=== PATIENT | male | born 1995 | race Caucasian/White ===

== ENCOUNTER 2022-02-06 05:37 | Emergency (ER) | payer MEDICAID, SELFPAY ==
[2022-02-06] VITALS (7 sets, daily range): BP systolic 121–129; BP diastolic 82–100; PULSE 128–135; RESP 21–29; TEMP 36.5; O2SAT 86–96; BMI 19.5
--- NOTE | 2022-02-06 05:51 | USR_ITS ---
PROCEDURE INFORMATION: Exam: US Duplex Left Lower Extremity Arteries Or Arterial Bypass Grafts Exam date and time: 02/06/2022 6:45 AM Age: 26 years old Clinical indication: Left leg pain TECHNIQUE: Imaging protocol: Left Real-time duplex scan of the arteries or arterial bypass grafts of the left lower extremity with 2-D dior scale, color Doppler flow and spectral waveform analysis. Images documented and saved. COMPARISON: CT ABDOMEN/PELVIS 02/06/2022 6:29 AM FINDINGS: Left common femoral artery: PSV = 15.4 cm/s. Minimal flow. Left superficial femoral artery: PSV = 15.8 cm/s. Minimal flow. Left popliteal artery: PSV = 7.7 cm/s. Minimal flow. Left calf/foot arteries: No flow detected. US/CV arterial duplex [facility] [id number] IMPRESSION: 1. Minimal flow in the femoropopliteal segment. 2. No flow detected in the tibial segment.
--- NOTE | 2022-02-06 05:57 | ECG_ITS ---
[facility] Test Date: 2022-02-06 Pat Name: Mark Nieves Department: Room: Gender: Male Telecommunications Line Mechanic: : 1995 Requested By: Frankie Barry Order Number: [id number] Renetta MD: Jessica Schroeder M.D. Measurements Intervals [place] Rate: 125 P: 74 [place]: 152 QRS: -76 QRSD: 96 T: 92 QT: 312 QTc: 450 Interpretive Statements SINUS TACHYCARDIA PATTERN CONSISTENT WITH PULMONARY DISEASE LEFT ANTERIOR FASCICULAR BLOCK [QRS AXIS <= -45, QR IN I, RS IN II] SEPTAL MYOCARDIAL INFARCTION , PROBABLY OLD [40+ ms Q WAVE IN V1/V2] No previous ECG available for comparison Electronically Signed On 02-06-2022 22:41:13 CDT by Jessica Schroeder M.D. [id number]
--- NOTE | 2022-02-06 05:57 | CTR_ITS ---
PROCEDURE INFORMATION: Exam: CT Abdomen And Pelvis With Contrast Exam date and time: 02/06/2022 6:29 AM Age: 26 years old Clinical indication: Abdominal pain; Localized; Left lower quadrant (llq); Additional info: Abd pain TECHNIQUE: Imaging protocol: Computed tomography of the abdomen and pelvis with contrast. Radiation optimization: All CT scans at this facility use at least one of these dose optimization techniques: automated exposure control; mA and/or kV adjustment per patient size (includes targeted exams where dose is matched to clinical indication); or iterative reconstruction. Contrast material: OMNI 350; Contrast volume: 80 ml; Contrast route: INTRAVENOUS (IV); COMPARISON: CR (CHEST, ) 02/06/2022 6:08 AM RADIATION DOSE METRICS: Total DLP (mGy-cm): 592.46 FINDINGS: Lungs: Multifocal bilateral ground-glass opacities noted in the lungs. Pleural spaces: There are small pleural effusions. Heart: Low-density region noted in the left atrium concerning for thrombus (axial image 11 sagittal image 26) . Liver: Focal area fatty infiltration along the falciform ligament. Gallbladder and bile ducts: Distended gallbladder. Pancreas: No ductal dilation. Spleen: No splenomegaly. Adrenal glands: Normal. No mass. Kidneys and ureters: There is symmetric cortical enhancement of the kidneys. No hydronephrosis. Stomach and bowel: No obstruction. No mucosal thickening. Appendix: The appendix is not visualized. However, there are no right lower quadrant inflammatory changes. Intraperitoneal space: No free air. No significant fluid collection. Vasculature: There is thrombus noted in the left iliac artery extending to the imaged left femoral artery in the left lower extremity. Lymph nodes: There are calcified hilar lymph nodes. Urinary bladder: Unremarkable as visualized. Reproductive: Unremarkable as visualized. Bones/joints: Unremarkable. No acute fracture. Soft tissues: Unremarkable. CT/CT abdomen pelvis w con* [id number] IMPRESSION: 1. Low-density region noted in the left atrium concerning for thrombus (axial image 11 sagittal image 26). 2. Acute appearing thrombus noted in the left iliac artery extending to the imaged left femoral artery in the left lower extremity. 3. Bilateral multifocal ground-glass opacities noted in the lungs. Small pleural effusions. Findings may be infectious or inflammatory in etiology.
--- NOTE | 2022-02-06 05:57 | XRR_ITS ---
PROCEDURE INFORMATION: Exam: XR Chest Exam date and time: 02/06/2022 6:08 AM Age: 26 years old Clinical indication: Shortness of breath; Patient HX: SOB x 3 hours; Additional info: Dyspnea/cough TECHNIQUE: Imaging protocol: Radiologic exam of the chest. Views: 1 view. COMPARISON: No relevant prior studies available. FINDINGS: Lungs: Bilateral pulmonary opacities, right greater than left. Findings may be seen with pneumonia. Pleural spaces: Unremarkable. No pleural effusion. No pneumothorax. Heart/Mediastinum: No cardiomegaly. Bones/joints: No acute fracture. XR/XR chest 1V portable [id number] IMPRESSION: Bilateral pulmonary opacities, right greater than left. Findings may be seen with pneumonia.
[2022-02-06] MEDS: morphine 4 mg/mL SDV 1 mL IVP ×2 (05:58→07:56)
[2022-02-06] MEDS: ondansetron 2 mg/ML SDV 2 mL 4 MG IVP (05:59)
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
[2022-02-06] MEDS: sodium chloride 0.9% 1,000 ML 999 ML IV (06:04)
[2022-02-06 06:06] LABS: Basophils # 0.1 10^3/uL (0.0-0.1); Basophils % 0.3 %; Eosinophils # 0.1 10^3/uL (0.0-0.8); Eosinophils % 0.3 %; Hematocrit 51.1 % (42.0-52.0); Hemoglobin 17.5 g/dL (11.7-16.6); Lymphocytes % 10.2 %; Mean Corpuscular HGB Conc 34.2 g/dL (30.0-36.0); Mean Corpuscular Hemoglobin 29.7 pg (28.0-34.0); Mean Corpuscular Volume 86.8 fl (80-94); Mean Platelet Volume 12.4 fL (7.4-10.4); Monocytes # 0.5 10^3/uL (0.2-0.9); Monocytes % 2.6 %; Neutrophils # 16.47 10^3/uL (1.8-7.7); Neutrophils % 85.9 %; Nucleated Red Blood Cells % 0 %; Platelet Count 182 10^3/cmm (130-400); Red Blood Count 5.89 10^6/uL (4.1-5.3); Red Cell Distribution Width 12.2 % (12.1-15.1); White Blood Count 19.2 10^3/uL (4.0-10.0)
[2022-02-06 06:15] LABS: Ketone (Acetest) Serum Negative (Negative)
[2022-02-06 06:23] LABS: Alanine Aminotransferase 35 U/L (0-41); Albumin Level 3.4 g/dL (3.5-5.2); Alkaline Phosphatase 73 U/L (40-130); Aspartate Amino Transferase 36 U/L (0-40); Blood Urea Nitrogen 26 mg/dL (6-20); Calcium 8.8 mg/dL (8.5-10.5); Carbon Dioxide 20 mmol/L (22-29); Chloride 94 mmol/L (98-107); Globulin 2.7 g/dL (1.3-4.6); Glomerular Filtration Rate 72.1 mL/min (90-130); Glucose 195 mg/dL (65-115); Lipase 7 U/L (13-60); Osmolality Calculated 288 mOsm/kg (285-295); Sodium 134 mmol/L (136-145); Total Bilirubin 1.1 mg/dL (0.15-1.2); Total Protein 6.1 g/dL (6.6-8.7)
[2022-02-06 06:28] LABS: ABG PCO2 34.4 mmHg (35-45); Alveolar-Arterial Oxygen Gradi 7.1 mmHg (5-10); Arterial Blood Gas Hematocrit 51.5 % (42-52); Base Excess ABG 3.9 mmol/L (-2.0-2.0); Blood Gas Allen Test Pos; Blood Gas Operator Identificat WALCI; Blood Gas Sample Site Radial, right; Blood Gas Sample Type Arterial; Carboxyhemoglobin 1.3 %THgb (0.4-20.1); HCO3 ABG 26.7 mmol/L (22-26); HGB O2 Sat 86.9 % (95-100); Ionized Calcium Level - ABG 1.1 mmol/L (1.1-1.4); Methemoglobin 0.6 % (0.4-1.5); Oxygen Device NC; Oxygen Saturation ABG 88.6; PO2 ABG 52.3 mmHg (80.0-100.0); Potassium Level - ABG 3.5 mmol/L (3.5-5.0); Total Hemoglobin 16.8 g/dL (14-18)
[2022-02-06 06:28] LABS: Anion Gap 23.9 (5-19); Potassium 3.9 mmol/L (3.5-5.1)
[2022-02-06 06:29] LABS: Alcohol Level < 10 mg/dL (0-10)
[2022-02-06 06:30] LABS: Lactic Sepsis W/Reflex 4.9 mmol/L (0.5-2.2)
[2022-02-06] MEDS: iohexol 350 mg/mL 100 mL Btl IV (06:36)
--- NOTE | 2022-02-06 07:04 | CTR_ITS ---
PROCEDURE INFORMATION: Exam: CTA Chest With Contrast Exam date and time: 02/06/2022 7:39 AM Age: 26 years old Clinical indication: Injury or trauma; Additional info: Hypoxia TECHNIQUE: Imaging protocol: Computed tomographic angiography of the chest with contrast. 3D rendering (Not supervised by radiologist): MIP and/or 3D reconstructed images were created by the technologist. Radiation optimization: All CT scans at this facility use at least one of these dose optimization techniques: automated exposure control; mA and/or kV adjustment per patient size (includes targeted exams where dose is matched to clinical indication); or iterative reconstruction. Contrast material: OMNI 350; Contrast volume: 95 ml; Contrast route: INTRAVENOUS (IV); COMPARISON: CR (CHEST, ) 02/06/2022 6:08 AM RADIATION DOSE METRICS: Total DLP (mGy-cm): 415.9 FINDINGS: Pulmonary arteries: Normal. No pulmonary emboli. Aorta: Unremarkable. No aortic aneurysm. No aortic dissection. Lungs: There is extensive ground-glass opacities with subpleural sparing throughout both lungs. Tiny calcified granuloma noted in the right middle lobe. Pleural spaces: There is a small bilateral pleural effusions, right greater than left. Heart: Unremarkable. No cardiomegaly. No pericardial effusion. Lymph nodes: There is a small calcified subcarinal and right hilar lymph nodes, likely sequela of previous granulomatous disease. Liver: There is an ill-defined focus of decreased attenuation along the anterior aspect of the liver and adjacent to the falciform ligament, consistent with focal fatty infiltration. The liver is otherwise unremarkable. Bones/joints: Unremarkable. No acute fracture. Soft tissues: Unremarkable. CT/CT angio chest PE protcl [id number] IMPRESSION: Nonspecific extensive ground-glass opacities with subpleural sparing throughout both lungs, which can be seen with infectious/inflammatory process, trauma, edema, inhalation and bleeding disorders.
[2022-02-06 07:49] LABS: Reflex Lactate Order REFLEX LACTIC ORDERD
[2022-02-06] MEDS: iohexol 350 mg/mL 100 mL Btl 95 ML IV (07:50)
[2022-02-06 07:56] LABS: INR 1.26 (0.8-1.2)
[2022-02-06] MEDS: sodium chloride 0.9% 1,905.09 ML 1905.09 ML IV (07:56)
[2022-02-06 07:57] LABS: Partial Thromboplastin Time 23.2 SECONDS (23.9-36.7)
--- NOTE | 2022-02-06 08:18 | PC.NURSE ---
DR. PONCE GAVE VERBAL ORDER TO INCREASE BOLUS DOSE HEPARIN BY MULTIPLIER OF 70UNITS/KG.
[2022-02-06] MEDS: heparin 5,000 unit/mL INJ 1 mL IV (08:27)
[2022-02-06] MEDS: heparin drip 25,000 UNIT/500 ML PREMIX 18 UNIT IV (08:28)
[2022-02-06 09:16] LABS: Add Urine Microscopic? YES; Bilirubin Urine Neg (Negative); Blood Urine Neg (Negative); Glucose Urine UA Norm (Normal); Ketones Urine Negative (Negative); Leukocyte Esterase Urine Negative (Negative); Nitrate Urine Negative (Negative); Protein Urine 1+ (Negative); Urine Appearance Clear (CLEAR); Urine Color Yellow (Yellow); Urobilinogen Urine 1 mg/dL (Negative); pH Urine 6.5 (5-7)
[2022-02-06 09:31] LABS: Amphetamines Screen Urine Positive (Negative); Barbiturates Screen Urine Negative (Negative); Benzodiazepines Screen Urine Negative (Negative); Cocaine Screen Urine Negative (Negative); Opiate Screen Urine Positive (Negative); PCP Screen Urine Negative (Negative); THC Screen Urine Positive (Negative)
[2022-02-06 10:07] LABS: SARS Covid-2 Antigen Negative (Negative)
[2022-02-06 10:25] LABS: Adenovirus Not Detected (NOT DETECT); Chlamydia Pneumoniae Not Detected (NOT DETECT); Coronavirus 229E,HKU1,NL63,OC4 Not Detected (NOT DETECT); Human Metapneumovirus Not Detected (NOT DETECT); Human Rhinovirus/Enterovirus Not Detected (NOT DETECT); Influenza A Not Detected (NOT DETECT); Influenza A H1 Not Detected (NOT DETECT); Influenza A H1-2009 Not Detected (NOT DETECT); Influenza A H3 Not Detected (NOT DETECT); Influenza B Not Detected (NOT DETECT); Mycoplasma Pneumoniae Not Detected (NOT DETECT); Parainfluenza Virus Type 1 Not Detected (NOT DETECT); Parainfluenza Virus Type 2 Not Detected (NOT DETECT); Parainfluenza Virus Type 3 Not Detected (NOT DETECT); Parainfluenza Virus Type 4 Not Detected (NOT DETECT); Respiratory Syncytial Virus A Not Detected (NOT DETECT); Respiratory Syncytial Virus B Not Detected (NOT DETECT); SARS-COV-2 Not Detected (NOT DETECT)
[2022-02-06 11:05] LABS: Add Urine Culture? No; RBC Urine 0-4 /hpf (0-2); Squamous Epithelial Cell Urine 0-4 /hpf (0-5); WBC Urine 0-4 /hpf (0-5)
== END 2022-02-06 08:50 | disposition short-term general hospital (02) ==
PROVIDERS: Emergency Medicine; Emergency Provider Family Medicine
DX: I70.222 Atherosclerosis of native arteries of extremities with rest pain, left leg (principal); F19.10 Other psychoactive substance abuse, uncomplicated; Z20.822 Contact with and (suspected) exposure to COVID-19; F17.210 Nicotine dependence, cigarettes, uncomplicated
CPT/HCPCS: 36600; 71045; 71275; 74177; 80051; 80053; 80306; 80307; 81001; 82009; 82330; 82805; 83605; 83690; 85025; 85610; 85730; 87426; 87635; 93005; 93926; 96361; 96374; 96375; 96376; 99285; J1644; J2270; J2405; J7030; Q9967

== ENCOUNTER → 2022-02-25 17:03 | Outpatient (BNVA) | payer MEDICAID, SELFPAY | PROVIDERS: PCP Nurse Practitioner Family; Visit Provider Nurse Practitioner Family | DX: I82.409 Acute embolism and thrombosis of unspecified deep veins of unspecified lower extremity (principal); R73.9 Hyperglycemia, unspecified; F17.200 Nicotine dependence, unspecified, uncomplicated; Z86.16 Personal history of COVID-19; T81.49XA Infection following a procedure, other surgical site, initial encounter | CPT/HCPCS: 80053; 83036; 85384; 85651; 86140 ==

== ENCOUNTER → 2022-03-24 11:43 | Outpatient (BNVA) | payer MEDICAID, SELFPAY | PROVIDERS: PCP Nurse Practitioner Family; Visit Provider Nurse Practitioner Family | DX: I82.409 Acute embolism and thrombosis of unspecified deep veins of unspecified lower extremity (principal); F17.200 Nicotine dependence, unspecified, uncomplicated; R73.9 Hyperglycemia, unspecified; Z86.16 Personal history of COVID-19 | CPT/HCPCS: 80053; 85384 ==

== ENCOUNTER → 2022-10-17 11:47 | Outpatient (BNVA) | payer MEDICAID, SELFPAY | PROVIDERS: PCP Nurse Practitioner Family; Visit Provider Nurse Practitioner Family | DX: R73.9 Hyperglycemia, unspecified (principal); I10 Essential (primary) hypertension; F41.1 Generalized anxiety disorder; G47.00 Insomnia, unspecified | CPT/HCPCS: 80053; 80061; 85007; 85027 ==

== ENCOUNTER → 2023-03-17 11:23 | Outpatient (BNVA) | payer MEDICAID, SELFPAY | PROVIDERS: PCP Nurse Practitioner Family; Visit Provider Nurse Practitioner Family | DX: F41.1 Generalized anxiety disorder (principal); I10 Essential (primary) hypertension; R73.9 Hyperglycemia, unspecified; I82.409 Acute embolism and thrombosis of unspecified deep veins of unspecified lower extremity; G47.00 Insomnia, unspecified; M79.671 Pain in right foot; M72.2 Plantar fascial fibromatosis; Z79.899 Other long term (current) drug therapy | CPT/HCPCS: 80053; 83036 ==

== ENCOUNTER 2023-04-07 09:16 | Emergency (ER) | payer MEDICAID, SELFPAY ==
--- NOTE | 2023-04-07 09:18 | W.ED.LOWEXIN ---
HPI - Extremity Injury (Lower) General: Stated Complaint: right foot injury Time Seen by Provider: 04/07/23 09:18 PFSH ED PFSH: Social History Smoking and tobacco/nicotine status: never used tobacco/nicotine Alcohol intake: current Substance/Drug Use: current Discharge Plan Discharge Condition: Stable Prescriptions: No Action Eliquis 5 mg tablet 5 mg PO BID 90 Days Qty: 180 1RF carvedilol 6.25 mg tablet 6.25 mg PO BID 90 Days Qty: 180 1RF Rx Instructions: must administer with a meal/food lisinopril 5 mg tablet 5 mg PO DAILY 90 Days Qty: 90 1RF quetiapine [Seroquel] 50 mg tablet 50 mg PO DAILY 90 Days Qty: 90 1RF spironolactone 25 mg tablet 25 mg PO DAILY 90 Days Qty: 90 1RF trazodone 50 mg tablet 50 mg PO .HS 90 Days Qty: 90 1RF Referrals: Jessica Downs NP [Primary Care Provider] - Coding Level of Care Code ED Cable Installer for Jamie Bush
--- NOTE | 2023-04-07 09:19 | XRR_ITS ---
PROCEDURE INFORMATION: Exam: XR Right Foot Exam date and time: 04/07/2023 9:25 AM Age: 27 years old Clinical indication: Injury or trauma; Sprain or strain; Injury details: PT states he was playing basketball and rolled his ankle. Swelling and bruising to lateral side of right foot. PT states he cannot put any weight on it TECHNIQUE: Imaging protocol: Radiologic exam of the right foot. Views: 3 or more views. COMPARISON: No relevant prior studies available. FINDINGS: Bones/joints: There appears to be a nondisplaced transverse fracture of the base of the 5th metatarsal seen to best advantage on the lateral projections.. Soft tissues: Normal. XR/XR foot RT min 3V* [id number] IMPRESSION: Fracture of the right 5th metatarsal.
[2023-04-07 09:21] VITALS: BP 123/89; PULSE 101; RESP 18; TEMP 36.6; O2SAT 93; BMI 26.4
--- NOTE | 2023-04-07 09:22 | ED_ITS ---
HPI - Extremity Injury (Lower) General: Chief Complaint: Extremity Injury, Lower Stated Complaint: right foot injury Time Seen by Provider: 04/07/23 09:18 Source: patient Mode of arrival: wheelchair Limitations: no limitations History of Present Illness: Patient is a 27-year-old male who presents to ED today with a complaint of a right foot injury. Patient states he was playing basketball yesterday and states he went up to dunk the ball and when he came down, he landed on a rock and inverted the foot. Patient states he has not been able to bear weight on the extremity since the injury. He has noticed bruising and swelling to the lateral aspect. He has no ankle pain. No other injuries or complaints at this time. MD complaint: foot injury Onset (ago): day(s) (yesterday) Injury: Right: foot Type of Injury: inversion Place: street/outdoors Severity: moderate Relieving factors: immobilization Exacerbating factors: weight bearing, movement and palpation Associated symptoms: Reports inability to bear weight Other symptoms: none Review of Systems Musc: Reports: extremity pain (R foot) and extremity swelling (R foot); Denies: neck pain, back pain, joint pain, joint swelling, joint redness, joint warmth or limited range of motion Neuro: Denies: numbness in extremities or sensory changes PFSH ED PFSH: Social History Smoking and tobacco/nicotine status: never used tobacco/nicotine Alcohol intake: current Substance/Drug Use: current Physical Exam Const: COMMON NORMALS: no acute distress, average body habitus, patient oriented x3, no limitations, alert and well nourished Extremity: COMMON NORMALS: capillary refill normal, no joint enlargement, no clubbing, cyanosis or edema, no calf tenderness and no pedal edema GENERAL: Yes normal exam except as noted RIGHT LOWER EXTREMITY: Yes foot & digits (no tenderness, swelling; full ROM) Right ankle: Yes neurovascular exam (normal) and Yes foot & digits (ecchymosis/swelling dorsolateral R foot) Right foot and digits: Yes neurovascular exam (normal) Neuro: COMMON NORMALS: patient oriented x3, moves all extremities, no focal m otor deficits and no sensory deficits noted SENSORIUM/ORIENTATION: Yes alert Skin: TRAUMA: no lacerations or abrasions Course Vital Signs: Vital signs: Vital Signs Temperature 97.9 F 04/07/23 09:21 Pulse Rate 101 H 04/07/23 09:21 Respiratory Rate 18 04/07/23 09:21 Blood Pressure 123/89 04/07/23 09:21 Pulse Oximetry 93 04/07/23 09:21 Oxygen Delivery Me thod Room Air 04/07/23 09:21 MDM - Extremity Injury (Lower) Medical Decision Making XR negative. Will DAVID wrap/crutches. Instructions for weightbearing as tolerated. RICE therapy discussed. He can follow-up with primary care in 1 to 2 weeks if symptoms or not improving with conservative therapies. XR interpretation done by ED provider, pending radiology final review Discharge Plan Discharge Patient Disposition: Home Clinical Impression: Right foot sprain Qualifiers: Encounter type: initial encounter Qualified Code(s): S93.601A - Unspecified sprain of right foot, initial encounter Condition: Stable Prescriptions: No Action Eliquis 5 mg tablet 5 mg PO BID 90 Days Qty: 180 1RF carvedilol 6.25 mg tablet 6.25 mg PO BID 90 Days Qty: 180 1RF Rx Instructions: must administer with a meal/food lisinopril 5 mg tablet 5 mg PO DAILY 90 Days Qty: 90 1RF quetiapine [Seroquel] 50 mg tablet 50 mg PO DAILY 90 Days Qty: 90 1RF spironolactone 25 mg tablet 25 mg PO DAILY 90 Days Qty: 90 1RF trazodone 50 mg tablet 50 mg PO .HS 90 Days Qty: 90 1RF Discharge Orders: Discharge ED (Routine); Ordered 04/07/23 Ordered By: Afshan Colindres Referrals: Jessica Downs NP [Primary Care Provider] - Patient Instructions: Foot Sprain (ED), RICE Therapy Coding Level of Care Code ED Metal Die Finisher for Jamie Bush
--- NOTE | 2023-04-07 14:44 | DCPLANNER ---
Messaged and tasked Orth and Podiatry 04/07/23 @ 1444 DA
== END 2023-04-07 09:44 | disposition home or self-care (01) ==
PROVIDERS: Emergency Provider Physician Assistant; PCP Nurse Practitioner Family
DX: S93.601A Unspecified sprain of right foot, initial encounter (principal); X50.1XXA Overexertion from prolonged static or awkward postures, initial encounter
CPT/HCPCS: 73630; 99283

== ENCOUNTER 2023-04-15 11:42 | Emergency (ER) | payer MEDICAID, SELFPAY ==
[2023-04-15 11:53] VITALS: BMI 25.7
== END 2023-04-15 11:43 | disposition home or self-care (01) ==
PROVIDERS: Emergency Provider Family Medicine; PCP Nurse Practitioner Family
DX: S92.354A Nondisplaced fracture of fifth metatarsal bone, right foot, initial encounter for closed fracture (principal); X50.1XXA Overexertion from prolonged static or awkward postures, initial encounter; Y93.67 Activity, basketball
CPT/HCPCS: 73630

== ENCOUNTER 2024-10-03 02:04 | Emergency (ER) | payer MEDICAID, SELFPAY ==
[2024-10-03 02:31] VITALS: BP 147/86; PULSE 65; RESP 20; TEMP 36.8; O2SAT 95; BMI 23.0
--- NOTE | 2024-10-03 03:48 | ED.C_ITS ---
HPI - Psych General: Chief Complaint: Psychiatric Symptoms Stated Complaint: SI Time Seen by Provider: 10/03/24 02:32 History of Present Illness: 29-year-old male patient presenting with EMS. Evidently, he was in a texting argument with an acquaintance earlier in the evening, and told her he was going to take a bunch of pills and end his life. He maintains that he said this because she was bothering him, and he wanted to be left alone. Police were called by this acquaintance, and they showed up to his door. EMS was called to bring the patient here for evaluation. The patient states he is not suicidal. He has a cat at home named tails , and friends in his hotel/apartment complex. He also has children, for which he wants to live. He has no plan for suicide currently. He would like to go home. His father is supposed to have surgery at another hospital later this morning. He wants to be there for that. He himself has had no recent medical illnesses. Related Data Previous Rx's ?Medication ?Instructions ?Recorded CAM walker #1 ea 04/15/23 hydrocodone 5 mg-acetaminophen 325 1 tab PO Q8H PRN pa in 7 days #21 04/15/23 mg tablet tabs amitriptyline 25 mg tablet 25 mg PO .QHS 90 days #90 t abs 12/18/23 apixaban 5 mg tablet (Eliquis) 5 mg PO BID 90 days #18 0 tabs 12/18/23 carvedilol 6.25 mg tablet 6.25 mg PO BID 90 days #180 tabs 12/18/23 clindamycin HCl 300 mg capsule 300 mg PO TID 10 days # 30 caps 12/18/23 lidocaine HCl 2 % mucosal solution 1 applic mucous mem brane QID PRN 12/18/23 (Lidocaine Viscous) pain #100 mL lisinopril 5 mg tablet 5 mg PO DAILY 90 days #90 ta bs 12/18/23 quetiapine 50 mg tablet (Seroquel) 50 mg PO DAILY 90 d ays #90 tabs 12/18/23 spironolactone 25 mg tablet 25 mg PO DAILY 90 days #90 tabs 12/18/23 valacyclovir 1 gram tablet 1,000 mg PO BID 10 days #20 tabs 12/18/23 (Valtrex) Allergies Allergy/AdvReac Type Severity Reaction Status Date / Time amoxicillin Allergy ALGY-Rash Verified 12/18/23 14:04 Penicillins Allergy ALGY-Rash Verified 12/18/23 14:04 PFSH ED PFSH: Social History Smoking and tobacco/nicotine status: never used tobacco/nicotine Alcohol intake: current Substance/Drug Use: current Physical Exam Const: COMMON NORMALS: no acute distress GENERAL APPEARANCE: cooperative; not ill appearing and not frail appearing HENMT: COMMON NORMALS: normocephalic, atraumatic and Normal external nose present HEAD & SCALP: normocephalic and atraumatic FACE & SINUS: normal facial exam and face symmetric NOSE: Normal external nose present Eye: COMMON NORMALS: Equal, round and reactive pupils present and EOMs intact bilaterally PUPIL: Yes Equal, round and reactive pupils present Neck/C-Spine: GENERAL: Yes trachea midline Chest: CHEST: Yes Symmetrical chest wall rise Resp: COMMON NORMALS: normal respiratory effort, No retractions, No use of accessory muscles and clear to auscultation bilaterally AUSCULTATION: clear to auscultation bilaterally Cardio: COMMON NORMALS: regular rate and regular rhythm RATE: regular rate RHYTHM: regular rhythm GI: COMMON NORMALS: Normal to inspection, nondistended, normoactive bowel sounds present Extremity: COMMON NORMALS: no pedal edema Neuro: ALISA COMA SCALE: document GCS findings [place] coma scale eye opening: Spontaneous Alisa coma scale verbal response: Orientated [place] coma scale motor response: Obey commands Alisa coma scale total score: 15 SENSORY EXAM: Yes extremities (intact) Psych: COMMON NORMALS: speech normal SPEECH: Yes normal speech Skin: COMMON NORMALS: no rashes or lesions noted GENERAL SKIN EXAM: no rashes or lesions noted Course Vital Signs: Vital signs: Vital Signs Temperature 98.3 F 10/03/24 02:31 Pulse Rate 65 10/03/24 02:31 Respiratory Rate 20 H 10/03/24 02:31 Blood Pressure 147/86 10/03/24 02:31 Pulse Oximetry 95 10/03/24 02:31 Oxygen Delivery Me thod Room Air 10/03/24 02:31 MDM - Psych Medical Decision Making This patient has been reasonable and respectful. He maintains that he is not suicidal or homicidal. He has not been admitted to the hospital for depression or suicidal ideation before. He maintains that he does not need psychiatric help, and does not want to stay. No affidavits were signed by any witnesses to any suicidal statements. Medically appears stable. He is awake, alert, and conversant. He will be discharged. To return for any new or worse symptoms. No radiology studies performed this visit Discharge Plan Discharge Patient Disposition: Home Clinical Impression: VINEET (generalized anxiety disorder) Condition: Stable Prescriptions: No Action (DME) CAM walker See Rx Instructions .Route .MEDSUPPLY Qty: 1 0RF Rx Instructions: As directed hydrocodone-acetaminophen 5-325 mg tablet 1 tab PO Q8H PRN (Reason: pain) 7 Days Qty: 21 0RF clindamycin HCl 300 mg capsule 300 mg PO TID 10 Days Qty: 30 0RF lidocaine HCl [Lidocaine Viscous] 2 % solution 1 applic mucous membrane QID PRN (Reason: pain) Qty: 100 1RF Eliquis 5 mg tablet 5 mg PO BID 90 Days Qty: 180 1RF carvedilol 6.25 mg tablet 6.25 mg PO BID 90 Days Qty: 180 1RF Rx Instructions: must administer with a meal/food lisinopril 5 mg tablet 5 mg PO DAILY 90 Days Qty: 90 1RF spironolactone 25 mg tablet 25 mg PO DAILY 90 Days Qty: 90 1RF amitriptyline 25 mg tablet 25 mg PO .QHS 90 Days Qty: 90 1RF valacyclovir [Valtrex] 1 gram tablet 1,000 mg PO BID 10 Days Qty: 20 0RF quetiapine [Seroquel] 50 mg tablet 50 mg PO DAILY 90 Days Qty: 90 1RF Discharge Orders: Discharge ED (Routine); Ordered 10/03/24 Ordered By: Emil Rosenberg Referrals: Jessica Downs NP [Referring] - 1-3 days Patient Instructions: Anxiety (ED), Opioid Safety, Pain Management Activity Restrictions/Additional Instructions: Returns for any thoughts or wishes to harm yourself or anyone else. Print Language: Serbian Coding Level of Care Code ED Small Business Sales Representative for Jamie Bush
== END 2024-10-03 02:38 | disposition home or self-care (01) ==
PROVIDERS: Emergency Provider Emergency Medicine; PCP Nurse Practitioner Family
DX: F41.1 Generalized anxiety disorder (principal); Z79.01 Long term (current) use of anticoagulants
CPT/HCPCS: 99283

== ENCOUNTER 2025-01-17 13:33 | Emergency (ER) | payer MEDICAID, SELFPAY ==
[2025-01-17 13:42] VITALS: BP 106/84; PULSE 74; RESP 16; TEMP 36.8; O2SAT 94; BMI 23.8
--- NOTE | 2025-01-17 13:54 | ED_ITS ---
HPI - Abdominal Pain 2 General: Chief Complaint: Abdominal Pain Stated Complaint: ABDOMEN PAIN Time Seen by Provider: 01/17/25 13:36 History of Present Illness: 29-year-old male who presents to the ED with complaint of left groin pain onset earlier today. Patient reports that he has a left inguinal hernia and was scheduled to see a general surgeon on 01/13/2025, but he missed his appointment. He reports that today he has had sharp, stabbing 8/10 pain that radiates to his scrotum and is worse with movement. Denies any nausea, vomiting, change in bowel or bladder. Denies any previous abdominal surgical history. No other complaints at this time. Associated Symptoms: Denies change in bowel habits, chills, dysuria, fever(s), nausea and vomiting Related Data Previous Rx's ?Medication ?Instructions ?Recorded CAM walker #1 ea 04/15/23 hydrocodone 5 mg-acetaminophen 325 1 tab PO Q8H PRN pa in 7 days #21 04/15/23 mg tablet tabs amitriptyline 25 mg tablet 25 mg PO .QHS 90 days #90 t abs 12/18/23 apixaban 5 mg tablet (Eliquis) 5 mg PO BID 90 days #18 0 tabs 12/18/23 carvedilol 6.25 mg tablet 6.25 mg PO BID 90 days #180 tabs 12/18/23 clindamycin HCl 300 mg capsule 300 mg PO TID 10 days # 30 caps 12/18/23 lidocaine HCl 2 % mucosal solution 1 applic mucous mem brane QID PRN 12/18/23 (Lidocaine Viscous) pain #100 mL lisinopril 5 mg tablet 5 mg PO DAILY 90 days #90 ta bs 12/18/23 quetiapine 50 mg tablet (Seroquel) 50 mg PO DAILY 90 d ays #90 tabs 12/18/23 spironolactone 25 mg tablet 25 mg PO DAILY 90 days #90 tabs 12/18/23 valacyclovir 1 gram tablet 1,000 mg PO BID 10 days #20 tabs 12/18/23 (Valtrex) methocarbamol 500 mg tablet 500 mg PO Q8H PRN muscle s pasm #30 01/17/25 tabs Allergies Allergy/AdvReac Type Severity Reaction Status Date / Time amoxicillin Allergy ALGY-Rash Verified 12/18/23 14:04 Penicillins Allergy ALGY-Rash Verified 12/18/23 14:04 Review of Systems 2 Const: Denies: fever(s) or chills Card: Denies: chest pain or palpitations Resp: Denies: dyspnea GI: Reports: abdominal pain; Denies: nausea, vomiting or change in bowel habits : Denies: difficulty urinating or dysuria Musc: Denies: neck pain, back pain, extremity pain or joint swelling Neuro: Denies: headache(s), numbness in extremities or weakness in extremities Psych: Reports: anxiety; Denies: depression PFSH ED 2 PFSH: Social History Smoking and tobacco/nicotine status: never used tobacco/nicotine Alcohol intake: current Substance/Drug Use: current Physical Exam 2 Const: COMMON NORMALS: average body habitus, patient oriented x3 and well nourished ORIENTATION/CONSCIOUSNESS: Yes Other orientation findings (appears in pain) HENMT: COMMON NORMALS: normocephalic and atraumatic HEAD & SCALP: n ormocephalic and atraumatic Eye: COMMON NORMALS: EOMs intact bilaterally and conjunctivae normal C ONJUNCTIVA: Yes conjunctivae normal Chest: COMMONS NORMALS: normal inspection of the chest and normal palpation of entire chest wall Resp: COMMON NORMALS: normal respiratory effort, No retractions and clear to auscultation bilaterally AUSCULTATION: clear to auscultation bilaterally GI: INSPECTION: No Abdominal wall edema and No abdominal distension A USCULTATION: Yes normoactive bowel sounds PALPATION: Yes Firmness to palpation present (GI) (superior LLQ, mild buldging) and Yes Guarding due to palpation present (GI) in the LLQ PERCUSSION: normal to percussion and dullness to percussion : COMMON NORMALS: Yes no CVA tenderness BLADDER/KIDNEY EXAM: Yes no CVA tenderness Back/Pelvis: COMMON NORMALS: no CVA tenderness and thoracic and lumbar spine normal to inspection Extremity: COMMON NORMALS: normal to inspection, full ROM and capillary refill normal Neuro: COMMON NORMALS: patient oriented x3 Psych: COMMON NORMALS: mental status grossly normal ATTITUDE: Yes agitated (anxious due to pain) Course 2 Vital Signs: Vital signs: Vital Signs Temperature 98.3 F 01/17/25 13:42 Pulse Rate 60 01/17/25 14:30 Respiratory Rate 18 01/17/25 14:24 Blood Pressure 114/68 01/17/25 14:30 Pulse Oximetry 94 01/17/25 14:30 Oxygen Delivery Me thod Room Air 01/17/25 14:30 MDM - Abdominal Pain Medical Decision Making Patient is 29-year-old gentleman with complaints of left lower quadrant pain. On exam, he did have some mild bulging to this area, however no area to retract that was notable. His pain was out of proportion with exam. He had history of abdominal hernia, and was supposed to go to the surgeon on 01/13. Given this information, I have ordered routine labs, and CT with contrast with this concern of a incarcerated hernia. CT did not show any incarcerated hernia, and no additional findings were found. Suspect muscular in nature. Will send Robaxin to the pharmacy. All patient's questions were answered to his satisfaction. Lab Data 01/17/25 13:50 01/17/25 13:50 Labs/Radiology: Radiology Impressions Abdomen/Pelvis CT 01/17/25 14:00 IMPRESSION: 1. No evidence of LEFT lower quadrant hernia or LEFT ventral abdominal wall hernia. 2. Tiny fat-containing umbilical hernia. 3. Sigmoid diverticulosis. No evidence of acute diverticulitis. 4. No other acute findings. Laboratory Results WBC 9.25 10^3/uL (3.29-11.43) 01/17/25 13:50 RBC 5.02 10^6/uL (3.85-5.65) 01/17/25 13:50 Hgb 15.00 g/dL (11.27-16.99) 01/17/25 13:50 Hct 45.0 % (37-53) 01/17/25 13:50 MCV 89.6 fl (82-101) 01/17/25 13:50 MCH 29.9 pg (27-33) 01/17/25 13:50 MCHC 33.3 g/dL (30-55) 01/17/25 13:50 RDW 12.9 % (12.1-15.1) 01/17/25 13:50 Plt Count 250 10^3/cmm (157-399) 01/17/25 13:50 MPV 10.9 fL (7.4-10.4) H 01/17/25 13:50 Neut % (Auto) 64.8 % 01/17/25 13:50 Lymph % (Auto) 26.7 % 01/17/25 13:50 [place] % (Auto) 6.3 % 01/17/25 13:50 Eos % (Auto) 1.5 % 01/17/25 13:50 Baso % (Auto) 0.5 % 01/17/25 13:50 Neut # (Auto) 5.99 10^3/uL (1.8-7.7) 01/17/25 13:50 Lymph # (Auto) 2.5 10^3/uL (0.8-4.8) 01/17/25 13:50 [place] # (Auto) 0.6 10^3/uL (0.2-0.9) 01/17/25 13:50 Eos # (Auto) 0.1 10^3/uL (0.0-0.8) 01/17/25 13:50 Baso # (Auto) 0.1 10^3/uL (0.0-0.1) 01/17/25 13:50 Nucleated RBC % (auto) 0 % 01/17/25 13:50 Nucleated RBCs # 0.0 /100WBC 01/17/25 13:50 Sodium 137 mmol/L (136-145) 01/17/25 13:50 Potassium 3.9 mmol/L (3.5-5.1) 01/17/25 13:50 Chloride 102 mmol/L (98-107) 01/17/25 13:50 Carbon Dioxide 20 mmol/L (22-29) L 01/17/25 13:50 Anion Gap 18.9 (5-19) 01/17/25 13:50 BUN 12 mg/dL (6-20) 01/17/25 13:50 Creatinine 0.9 mg/dL (0.7-1.2) 01/17/25 13:50 GFR Calculation 98.4 mL/min (90-130) 01/17/25 13:50 Glucose 98 mg/dL (65-115) 01/17/25 13:50 Calculated Osmolality 284 mOsm/kg (285-295) L 01/17/25 13:50 Lactic Acid 1.1 mmol/L (0.5-2.2) 01/17/25 13:50 Calcium 9.7 mg/dL (8.5-10.5) 01/17/25 13:50 Total Bilirubin 0.4 mg/dL (0.15-1.2) 01/17/25 13:50 AST 11 U/L (0-40) 01/17/25 13:50 ALT 15 U/L (0-41) 01/17/25 13:50 Alkaline Phosphatase 49 U/L (40-130) 01/17/25 13:50 Total Protein 6.9 g/dL (6.6-8.7) 01/17/25 13:50 Albumin 4.4 g/dL (3.5-5.2) 01/17/25 13:50 Globulin 2.5 g/dL (1.3-4.6) 01/17/25 13:50 Urine Color Yellow (Yellow) 01/17/25 14:45 Urine Appearance Clear (CLEAR) 01/17/25 14:45 Urine pH 6.5 (5-7) 01/17/25 14:45 Ur Specific [place] 1.060 (1.005-1.030) H 01/17/25 14:45 Urine Protein Negative (Negative) 01/17/25 14:45 Urine Glucose (UA) Negative (Normal) 01/17/25 14:45 Urine Ketones 1+ (Negative) H 01/17/25 14:45 Urine Blood Negative (Negative) 01/17/25 14:45 Urine Nitrate Negative (Negative) 01/17/25 14:45 Urine Bilirubin Negative (Negative) 01/17/25 14:45 Urine Urobilinogen 1.0 mg/dL (Negative) 01/17/25 14:45 Ur Leukocyte Esterase Negative (Negative) 01/17/25 14:45 Urine RBC 0-2 /hpf (0-2) 01/17/25 14:45 Urine WBC 0-5 /hpf (0-5) 01/17/25 14:45 Ur Squamous Epith Cells 0-5 /hpf (0-5) 01/17/25 14:45 Amorphous Sediment Not Reportable 01/17/25 14:45 Urine Bacteria None seen /hpf (NONE) 01/17/25 14:45 Hyaline Casts 1.21 /lpf 01/17/25 14:45 All radiology interpretation(s) finalized by discharge Discharge Plan Discharge Patient Disposition: Home Clinical Impression: Muscular aches Abdominal pain Qualifiers: Abdominal location: left lower quadrant Qualified Code(s): R10.32 - Left lower quadrant pain Condition: Stable Prescriptions: New methocarbamol 500 mg tablet 500 mg PO Q8H PRN (Reason: muscle spasm) Qty: 30 0RF No Action (DME) CAM walker See Rx Instructions .Route .MEDSUPPLY Qty: 1 0RF Rx Instructions: As directed hydrocodone-acetaminophen 5-325 mg tablet 1 tab PO Q8H PRN (Reason: pain) 7 Days Qty: 21 0RF clindamycin HCl 300 mg capsule 300 mg PO TID 10 Days Qty: 30 0RF lidocaine HCl [Lidocaine Viscous] 2 % solution 1 applic mucous membrane QID PRN (Reason: pain) Qty: 100 1RF Eliquis 5 mg tablet 5 mg PO BID 90 Days Qty: 180 1RF carvedilol 6.25 mg tablet 6.25 mg PO BID 90 Days Qty: 180 1RF Rx Instructions: must administer with a meal/food lisinopril 5 mg tablet 5 mg PO DAILY 90 Days Qty: 90 1RF spironolactone 25 mg tablet 25 mg PO DAILY 90 Days Qty: 90 1RF amitriptyline 25 mg tablet 25 mg PO .QHS 90 Days Qty: 90 1RF valacyclovir [Valtrex] 1 gram tablet 1,000 mg PO BID 10 Days Qty: 20 0RF quetiapine [Seroquel] 50 mg tablet 50 mg PO DAILY 90 Days Qty: 90 1RF Discharge Orders: Discharge ED (Routine); Ordered 01/17/25 Ordered By: Meredith Sheppard Referrals: Keiry Andres FNP [Primary Care Provider, Family Practice] Discharge Diet: Usual diet Discharge Activity: Resume usual activity Patient Instructions: Abdominal Pain (ED), Pain Management, Patient Portal & Daniel Instructions Activity Restrictions/Additional Instructions: Follow-up with your doctor. Please call for appointment follow-up Do not carry anything over a gallon of milk x 1 week You may ice this area or apply heat if this helps. Return to ED with worsening pain, redness, temperature greater than 100.4 Gy Fahrenheit Stand Alone Forms: Work/School Release Print Language: Japanese Coding Level of Care Code ED Communication Equipment Mechanic for Jamie Bush
--- NOTE | 2025-01-17 14:00 | CT_ITS ---
WS: [id number] CT ABDOMEN PELVIS TECHNIQUE: Contrast-enhanced CT of the abdomen and pelvis with coronal and sagittal reformatted images. CLINICAL INFORMATION: abdominal hernia COMPARISON: None. DLP: 491.[address] scans at [facility] use at least one of these dose optimization techniques: automated exposure control; mA and/or kV adjustment per patient size (includes targeted exams where dose is matched to clinical indication); or iterative reconstruction. FINDINGS: Sigmoid diverticulosis. No evidence of acute diverticulitis. Tiny fat-containing umbilical hernia. No visualized hernias in the LEFT lower quadrant. Lung bases are well aerated. Liver. Normal spleen. Normal GE junction. Adrenal glands are normal. No hydronephrosis in either kidney. Normal caliber abdominal aorta. No evidence of small or large bowel obstruction. Normal bladder. No inguinal hernias. No inguinal lymphadenopathy. Normal appendix. Mild annular bulging L4-L5 and L5-S1. Mild lumbar curve. CT/CT abdomen pelvis w con* [id number] IMPRESSION: 1. No evidence of LEFT lower quadrant hernia or LEFT ventral abdominal wall he rnia. 2. Tiny fat-containing umbilical hernia. 3. Sigmoid diverticulosis. No evidence of acute diverticulitis. 4. No other acute findings.
[2025-01-17] MEDS: iohexol 350 mg/mL 500 mL Btl (per mL) IV (14:11)
[2025-01-17 14:15] LABS: Hematocrit 45.0 % (37-53); Hemoglobin 15.00 g/dL (11.27-16.99); Mean Corpuscular HGB Conc 33.3 g/dL (30-55); Mean Corpuscular Hemoglobin 29.9 pg (27-33); Mean Corpuscular Volume 89.6 fl (82-101); Nucleated Red Blood Cells % 0 %; Platelet Count 250 10^3/cmm (157-399); Red Blood Count 5.02 10^6/uL (3.85-5.65); White Blood Count 9.25 10^3/uL (3.29-11.43)
[2025-01-17] MEDS: ondansetron 2 mg/ML SDV 2 mL 4 MG IVP (14:16)
[2025-01-17 14:22] VITALS: RESP 18
[2025-01-17] MEDS: morphine 4 mg/mL SDV 1 mL IVP (14:22)
[2025-01-17] MEDS: orphenadrine 30 mg/mL Inj 2 mL IVP (14:23)
[2025-01-17 14:24] VITALS: BP 101/73; PULSE 64; RESP 18; O2SAT 97
[2025-01-17 14:30] VITALS: BP 114/68; PULSE 60; O2SAT 94
[2025-01-17 14:34] LABS: Alanine Aminotransferase 15 U/L (0-41); Albumin Level 4.4 g/dL (3.5-5.2); Alkaline Phosphatase 49 U/L (40-130); Anion Gap 18.9 (5-19); Aspartate Amino Transferase 11 U/L (0-40); Blood Urea Nitrogen 12 mg/dL (6-20); Calcium 9.7 mg/dL (8.5-10.5); Carbon Dioxide 20 mmol/L (22-29); Chloride 102 mmol/L (98-107); Creatinine Clr Calc Pharmacy 132.0326; Globulin 2.5 g/dL (1.3-4.6); Glucose 98 mg/dL (65-115); Lactic Sepsis W/Reflex 1.1 mmol/L (0.5-2.2); Osmolality Calculated 284 mOsm/kg (285-295); Potassium 3.9 mmol/L (3.5-5.1); Sodium 137 mmol/L (136-145); Total Protein 6.9 g/dL (6.6-8.7)
[2025-01-17 14:57] LABS: Glucose Urine UA Negative (Normal); Nitrate Urine Negative (Negative)
[2025-01-17 15:00] LABS: Add Urine Microscopic? YES
[2025-01-17 15:02] LABS: Specific Gravity, Urine 1.060 (1.005-1.030)
[2025-01-17 15:36] VITALS: BP 119/69; PULSE 68; O2SAT 98
--- NOTE | 2025-01-17 15:45 | PC.NURSE ---
this nurse took NS liter to pt per order, pt states Just take this IV out, I don't need that saline, I'll go home, find something else for pain and drink a bottle of water. Pt refused NS bolus, ANTHONY Sheppard notified and aware. Pt IV removed.
== END 2025-01-17 15:37 | disposition home or self-care (01) ==
PROVIDERS: Emergency Provider Physician Assistant; PCP Nurse Practitioner Family
DX: R10.32 Left lower quadrant pain (principal); M79.10 Myalgia, unspecified site; Z79.01 Long term (current) use of anticoagulants
CPT/HCPCS: 36415; 74177; 80053; 81001; 83605; 85025; 96374; 96375; 99285; J2270; J2360; J2405